=== PATIENT | male | born 1960 | race Hispanic/Latino ===

== ENCOUNTER 2022-09-01 08:33 | Emergency (ER) | payer BC, OTHER ==
[~2022-09-01] VITALS: Ht 172.7 cm; Wt 97.5 kg
[~2022-09-01 08:33] MED LIST: CLOBEX59 M1; TIMOLOL MALEATE5 M1 OU; TRAVATAN Z5 ML OU; TYLENOL WITH C1 EACH PO; [UNRECOGNIZED DRUG - REMARK]
[2022-09-01 08:40] VITALS: O2SAT 98
[2022-09-01 09:29] LABS: CLARITY,URINE SL CLOUDY (CLEAR); COLOR,URINE YELLOW (YELLOW); KETONES,URINE NEGATIVE (NEGATIVE); LEUKOCYTE ESTERASE ,URINE NEGATIVE (NEGATIVE); NITRITE,URINE NEGATIVE (NEGATIVE); PROTEIN,URINE DIPSTICK 1+ (NEGATIVE); URINE UROBILINOGEN 1 mg/dL (0.2 - 1)
[2022-09-01 09:31] LABS: BACTERIA,URINE RARE /HPF; EPITHELIAL CELLS,URINE RARE /LPF; MUCUS,URINE MODERATE (RARE)
[2022-09-01] MEDS ORDERED: DOXYCYCLINE HY100 MG PO (10:59)
[2022-09-01] MEDS ORDERED: CEFDINIR300 MG PO (10:59)
== END 2022-09-01 11:24 | disposition home or self-care (01) ==
LOC: ER 08:40
DX: R30.0 Dysuria (principal); R50.9 Fever, unspecified; N50.812 Left testicular pain; N45.1 Epididymitis; N43.3 Hydrocele, unspecified
CPT/HCPCS: 76870; 81001; 87086; 93976; 99283